=== PATIENT | female | born 1945 | race Caucasian/White ===

== ENCOUNTER 2024-12-20 14:50 | Outpatient (CLI) | payer MEDICARE, BC ==
--- NOTE | 2024-12-23 05:22 | CONSULTATION ---
DATE OF CONSULTATION: 12/20/2024 DICTATING PHYSICIAN: La Garcia M.S., [facility] SECURITY ENGINEER MODIFIED BARIUM SWALLOW STUDY REPORT REFERRING PHYSICIAN: Bhavana Wallace MD HISTORY OF PRESENT ILLNESS: The patient is a 78-year-old female who consents to this evaluation. In history obtained from the patient and medical records, the patient reports difficulty and pain when swallowing. She notes that she has a sensation of strangling on the left side of her throat, running up from her earlobe down to her clavicle. She reports that this occurs all times throughout the day. She notes that the pain is constant. It starts as a small pressure in the morning and builds as she is talking and eating throughout the day. She used to receive Botox injections on the left side of her neck every 3 months in the past. She stopped about a year ago, but she is now in constant pain and so she has decided that she will start receiving those injections again soon. The patient also notes that she can get rid of the pain by tilting her head to the left and down and that she has difficulty swallowing dry food items. The patient has been to several doctors throughout the years regarding this. She states that she believes that this pain has occurred due to a facelift. She feels that there has been excess skin since the reversal of her facelift and it has led to stiffness and a lump in her throat. She has had an MRI several years ago that had no significant results in that area. She has done physical therapy with manual therapy in that region and it temporarily helps, but as soon as manual therapy stops, that pain returns. The patient also notes that she has had numbness on the left side of her tongue since the neck lift reversal and this affects her speech. 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 As the time has progressed, her speech has gotten clearer. CURRENT DIET: The patient is currently on a regular texture thin liquid diet with no restrictions. MEDICATIONS: Estradiol vaginal cream 0.5 g twice a week. PARAMETERS: The patient is seated in a lateral 90-degree view and administered the usual protocol of thin and nectar thick liquids, puree and solid consistencies as well as self-regulated boluses of thin liquids from the cup. RESULTS: It was noted in the oral stage of the swallow that the patient was utilizing a piecemeal swallow in order to swallow the entirety of the bolus. Even with the 1 mL thin liquid bolus, she did require more than one swallow. Lingual strength was noted to be mild to moderately reduced and there was a moderate to moderate to severe oral residue after the initial swallow of boluses due to this piecemeal swallow. In the pharyngeal stage of the swallow, there was delayed swallow initiation to the level of the vallecula for the self-regulated boluses with thin liquids from the cup. Tongue base retraction was mild to moderately reduced. Elevation of the hyothyroid complex was accomplished with full range of motion. There was no pharyngeal residue after the tail of the bolus passed and PES opening was within functional limits. At no time was the patient noted to penetrate or aspirate on any of the bolus sizes or consistencies. It was noted in this lateral plane that the patient was having proximal movement of the boluses. This occurred in the 1 mL and 3 mL thin liquid bolus as well as puree and solid consistency and self-regulated bolus of liquid from a cup, in which that bolus would pass through the upper esophageal sphincter and then make its way back up to either right below the sphincter or sometimes past it. It is undetermined if the changes in the strength of the tongue and the tongue base were due to the numbness that the patient does experience on the left side or if this has occurred over time based off of what was observed with this proximal movement and need to have smaller bolus sizes. ANTERIOR AND POSTERIOR VIEW: In the AP plane, the bolus split symmetrically between the piriform sinuses and there was slow propulsion of the bolus through the esophagus. IMPRESSION: The patient demonstrates what appears to be a moderate pharyngoesophageal stage swallowing disorder characterized by decreased tongue base retraction and proximal movement of the boluses up to or past the point of the PES opening. DIAGNOSES: R13.14 dysphagia, pharyngoesophageal phase, K21.9 gastroesophageal reflux disease. PATIENT EDUCATION: Immediately following modified barium swallow study, the patient was able to view the results. The normal anatomy of the swallowing mechanism was revealed. The patient was able to see how the current status of the oral motor and swallowing musculature decreases her ability to swallow normally. She was educated on the recommendation for speech therapy to strengthen the tongue and tongue base and declined to participate at this time, but indicated that she would think about it and call the clinician if she did change her mind. The patient was also educated on dietary modifications for laryngopharyngeal reflux disease with written handout provided. RECOMMENDATIONS: * It was recommended the patient receive swallowing therapy one time weekly for 12 weeks to improve the strength and range of motion of the oral motor and swallowing mechanism to ensure airway safety protection and prevent aspiration. The patient declined the recommendation at this time, but also indicated that she would think about it and call the clinician back if she changed her mind. * It is recommended that the patient follow the aforementioned dietary modifications for laryngopharyngeal reflux disease. LONG-TERM GOALS: The patient will maintain adequate hydration/nutrition with optimum safety and efficiency of swallow function on p.o. intake without overt signs and symptoms of aspiration for the highest possible diet level. PROGNOSIS: Prognosis for the patient is fair based on motivation for therapy and undetermined diagnosis for the pain on the left side of her neck. FUNCTIONAL ORAL INTAKE: The FOIS was administered to establish and document a change in the functional eating activities of this patient over time. This is a 7-point scale with 1 indicating no oral intake and totally tube dependent and 7 indicating total oral intake with no restrictions. This patient received a 6, which indicates she has a total oral diet with multiple consistencies without special preparation, but with specific food limitations and precautions. G-CODE: [id number]. Thank you very much for asking me to participate in the care of this kind patient. Should you have any questions regarding this evaluation or recommendations, please do not hesitate to contact me at [phone]. During this examination, 2 minutes of fluoroscopy time and 39.48 CAK mGy were utilized. La Garcia M.S., [facility] [employer] SECURITY ENGINEER TID: [id number] RECEIPT: [id number] SAIVTA MIN
== END 2024-12-20 23:59 | disposition home or self-care (01) ==
LOC: RAD 14:50
PROVIDERS: ATTEND Family Medicine
DX: R13.10 Dysphagia, unspecified (principal); K21.9 Gastro-esophageal reflux disease without esophagitis
CPT/HCPCS: 74230